=== PATIENT | male | born 1955 | race Caucasian/White ===

== ENCOUNTER → 2019-10-16 | Outpatient (CLI) | payer BC ==
[~2019-10-16] MED LIST: ACTO15TA6 PO; ASPI81CH3 PO; DIOV320T PO; GLIM1TAB PO; GLIM4TAB5 PO; HYDR25TAB PO; JANU50TA22 PO; LOSA50TA88 PO; METF10004 PO; METF500T PO; OMEP-221 PO; OMEP40CA2 PO; PRAV1TAB39 PO; PRAV40TA2 PO; THER4000 PO; TRIL135C PO; TRUL0.5I SC; XALA0.007 OU
== END ==
LOC: M LABSMTC 11:06
PROVIDERS: ATTEND Anesthesiology
DX: Z01.818 Encounter for other preprocedural examination (principal); Z11.59 Encounter for screening for other viral diseases
CPT/HCPCS: C9803; U0003

== ENCOUNTER 2019-10-19 07:57 | Day surgery (SDC) | payer BC ==
[~2019-10-19] VITALS: Ht 170.2 cm; Wt 130.6 kg
[2019-10-19] MEDS ORDERED: ceFAZolin SOD 2 GM in IV 1 EA IV ONE (08:15)
[2019-10-19] MEDS ORDERED: LR 1,000 ML IV ONE (08:15)
[2019-10-19] MEDS ORDERED: ceFAZolin SOD 1 GM in D5W MINI-BAG PLUS 50 ML IV ONE (08:15)
[2019-10-19] MEDS ORDERED: HumaLOG INSULIN (NovoLOG) PER UNIT SC ONE (09:15)
[2019-10-19] MEDS ORDERED: fentaNYL 100 MCG/2 ML INJECTION (J3010) As Ordered ONE ×2 (10:14→11:58)
[2019-10-19] MEDS ORDERED: MIDAZOLAM INJ 2MG/2ML VIAL (J2250 PER 1MG) As Ordered ONE (10:14)
[2019-10-19] MEDS ORDERED: ONDANSETRON 4MG/2ML VIAL As Ordered ONE (10:14)
[2019-10-19] MEDS ORDERED: propofoL 200 MG/20 ML VIAL As Ordered ONE ×2 (10:14→12:14)
[2019-10-19] MEDS ORDERED: LIDOCAINE 2% 100MG/5ML SDV (FOR ANES.) As Ordered ONE (10:14)
[2019-10-19] MEDS ORDERED: BACITRACIN OINTMENT 30GM TUBE As Ordered ONE (10:18)
[2019-10-19] MEDS ORDERED: METOCLOPRAMIDE INJ 10MG/2ML VIAL (J2765 PER 1) As Ordered ONE (11:36)
[2019-10-19] MEDS ORDERED: ACETAMINOPHEN 1000MG 100ML IV BTL (OFIRMEV) (J0131 PER 10MG) As Ordered ONE (11:38)
[2019-10-19] MEDS ORDERED: SUCCINYLCHOLINE 100 MG/5 ML SYRINGE (J0330) As Ordered ONE (12:14)
[2019-10-19] MEDS ORDERED: ONDANSETRON 4MG/2ML VIAL IV PRN (13:15)
[2019-10-19] MEDS ORDERED: LR 1,000 ML IV SCH (13:15)
[2019-10-19] MEDS ORDERED: fentaNYL 100 MCG/2 ML INJECTION (J3010) IV PRN (13:15)
[2019-10-19] MEDS ORDERED: PERCOCET 5MG/325MG TAB PO PRN ×2 (13:15)
[2019-10-19 14:28] VITALS: BP 132/76
--- NOTE | 2019-10-23 16:34 | RO ---
DATE OF PROCEDURE: 10/19/2019 PREPROCEDURE DIAGNOSIS: Phimosis. POSTPROCEDURE DIAGNOSIS: Phimosis. OPERATIVE PROCEDURE: Circumcision. SURGEON: Josh Holland MD INSPECTOR LINE: None. ANESTHESIA: General. OPERATIVE INDICATIONS: This is a 63-year-old male with phimosis. He was brought to the operating room today for a circumcision. DESCRIPTION OF PROCEDURE: The patient was brought to the operating room and general anesthesia was induced. Prophylactic antibiotics were infused. He was then placed in supine position and prepped and draped in the usual sterile fashion. At this point, circumcising incisions were made at the level of coronal sulcus with the foreskin pulled over the glans and then also at the level of the coronal sulcus with the foreskin retracted off the glans. All the skin in-between the two circumcising incisions was then removed using electrocautery. Once that was done, we checked for hemostasis and any areas of bleeding were controlled with electrocautery. Once satisfied with hemostasis, the skin of the penile shaft was reapproximated to the glans using interrupted #3-0 chromic sutures. Once that was done, dressings were applied including a Adrianne and a Coban dressing. This marked conclusion of the procedure. The patient was then awakened from anesthesia and transported to the recovery room in stable condition. ESTIMATED BLOOD LOSS: 10 mL. COMPLICATIONS: None. SPECIMENS: Foreskin. PLAN: The patient will followup in clinic in a few weeks for a postoperative visit. RUDI
== END 2019-10-19 14:30 | disposition home or self-care (01) ==
LOC: M SDC 07:57
PROVIDERS: ATTEND Urology
DX: N47.1 Phimosis (principal); I10 Essential (primary) hypertension; E78.5 Hyperlipidemia, unspecified; E11.9 Type 2 diabetes mellitus without complications; Z79.84 Long term (current) use of oral hypoglycemic drugs; Z79.899 Other long term (current) drug therapy
CPT/HCPCS: 54161; 88304; J0131; J0330; J0690; J2250; J2405; J2765; J3010